=== PATIENT | female | born 1940 | race Caucasian/White ===

== ENCOUNTER 2018-06-21 07:42 | Inpatient (IN) ==
--- NOTE | 2018-06-09 08:05 | EKG Report ---
Test Performed on : 06/09/2018 07:46:30 AM Test Reason : PAT Blood Pressure : / mmHG Vent. Rate : 072 BPM Atrial Rate : 072 BPM P-R Int : 196 ms QRS Dur : 164 ms QT Int : 466 ms P-R-T Axes : 000 -67 024 degrees QTc Int : 510 ms Atrial-paced rhythm with premature atrial complexes. Right bundle branch block Left anterior fascicular block Bifascicular block Minimal voltage criteria for LVH, may be normal variant Septal infarct , age undetermined Abnormal ECG When compared with ECG of 14-JAN-2016 09:27, premature atrial complexes. are now present Septal infarct is now present Confirmed by Og WRIGHT, Rad Muse ([id number]) on 06/09/2018 8:42:57 AM
[2018-06-09 08:52] LABS: URINE SOURCE CLEAN CATCH
[2018-06-09 09:01] LABS: BASO# 0.04 X1000 (0.0-0.2); BASO% 0.6 % (0.0-0.8); EOS% 4.5 % (0.0-10.0); HEMATOCRIT 38.5 % (37.0-47.0); HEMOGLOBIN 12.7 g/dL (12.0-16.0); IMM GRAN# 0.02 X1000 (0.0-0.04); IMM GRAN% 0.3 % (0.0-0.5); LYMPH# 2.51 X1000 (1.2-3.4); LYMPH% 37.8 % (20.5-51.1); MCH 31.5 PG (27-31); MCV 95.5 FL (81-99); MONO# 0.53 X1000 (0.11-0.59); MPV 12.2 FL (7.4-10.4); NEUT# 3.24 X1000 (1.4-6.5); NEUT% 48.8 % (42.2-75.2); PLT 174 X1000 (130-400); RBC 4.03 XMIL (4.2-5.4); RDW 12.3 % (11.5-14.5); WBC 6.64 X1000 (4.8-10.8)
[2018-06-09 09:05] LABS: BILIRUBIN URINE NEGATIVE (NEGATIVE); BLOOD URINE NEGATIVE (NEGATIVE); COLOR YELLOW; GLUCOSE URINE TRACE mg/dL (NEGATIVE); KETONE URINE NEGATIVE (NEGATIVE); LEUKOCYTES URINE TRACE (NEGATIVE); NITRITE URINE NEGATIVE (NEGATIVE); PH URINE 5.5; PROTEIN URINE 30 mg/dL (NEGATIVE); SP GRAVITY URINE 1.018; TURBIDITY URINE CLEAR (CLEAR); UROBILINOGEN URINE NORMAL (NORMAL)
[2018-06-09 09:06] LABS: UR EPITHELIAL CELLS <10 /HPF (<10); URINE BACTERIA NEGATIVE /HPF; URINE RBC <10 /HPF (<10); URINE WBC <10 /HPF (<10)
[2018-06-09 09:12] LABS: INR 0.93; PROTIME 13.2 Seconds (11.0-16.0)
[2018-06-09 09:36] LABS: CALCIUM 10.7 mg/dL (8.8-10.2); CREATININE 1.1 mg/dL (0.5-0.9)
[2018-06-21] MEDS ORDERED: PEPCID ONE (08:09)
[2018-06-21] MEDS ORDERED: COLACE ONE (08:09)
[2018-06-21] MEDS ORDERED: REGLAN ONE (08:09)
[2018-06-21] MEDS ORDERED: CELEBREX ONE (08:10)
[2018-06-21] MEDS ORDERED: KEFZOL 1 GM/D5W 1 GM/50 ML IVPB ONE (08:10)
[2018-06-21] MEDS ORDERED: LR 1,000 ML ONE (08:10)
[2018-06-21] MEDS ORDERED: DIPRIVAN 1% 500 MG/50 ML BOTTLE ONE (09:37)
[2018-06-21] MEDS ORDERED: VANCOMYCIN ONE (09:41)
[2018-06-21] MEDS ORDERED: DURAMORPH ONE (09:41)
[2018-06-21] MEDS ORDERED: SENSORCAINE-MPF 0.5%/EPI 1:200,000 ONE (09:41)
[2018-06-21] MEDS ORDERED: SODIUM CHLORIDE 0.9% ONE (09:41)
[2018-06-21] MEDS ORDERED: TORADOL ONE (09:41)
[2018-06-21] MEDS ORDERED: CYKLOKAPRON 1,000 MG/NS 1,000 MG/100 ML IVPB ONE ×2 (09:41→09:42)
[2018-06-21] MEDS ORDERED: NEOSPORIN G.U. IRRIGANT ONE (09:42)
[2018-06-21] MEDS ORDERED: EXPAREL 1.3% ONE (09:42)
[2018-06-21] MEDS ORDERED: FENTANYL ONE (09:58)
[2018-06-21] MEDS ORDERED: DILAUDID ONE (10:45)
[2018-06-21 10:47] LABS: URINE SOURCE CATH
[2018-06-21 10:52] LABS: BILIRUBIN URINE NEGATIVE (NEGATIVE); BLOOD URINE NEGATIVE (NEGATIVE); COLOR YELLOW; GLUCOSE URINE NEGATIVE (NEGATIVE); KETONE URINE NEGATIVE (NEGATIVE); LEUKOCYTES URINE NEGATIVE (NEGATIVE); NITRITE URINE NEGATIVE (NEGATIVE); PH URINE 5.5; PROTEIN URINE TRACE mg/dL (NEGATIVE); SP GRAVITY URINE 1.009; TURBIDITY URINE CLEAR (CLEAR); UROBILINOGEN URINE NORMAL (NORMAL)
[2018-06-21 10:53] LABS: UR EPITHELIAL CELLS <10 /HPF (<10); URINE BACTERIA NEGATIVE /HPF; URINE RBC <10 /HPF (<10); URINE WBC <10 /HPF (<10)
[2018-06-21] MEDS ORDERED: OFIRMEV 1000 MG/ISOTONIC SOLN 1,000 MG/100 ML BOTTLE ONE (10:54)
[2018-06-21] MEDS ORDERED: ZOFRAN ONE (10:54)
[2018-06-21] MEDS ORDERED: DECADRON ONE (10:54)
[2018-06-21] MEDS ORDERED: NS 1,000 ML ONE (12:49)
[2018-06-21] MEDS ORDERED: MORPHINE IV PRN (13:40)
[2018-06-21] MEDS ORDERED: ZOFRAN IV PRN (13:40)
[2018-06-21] MEDS ORDERED: OXY IR PO PRN (13:40)
[2018-06-21 14:45] LABS: HEMOGLOBIN A1C 6.9 % (4.8-6.0)
--- NOTE | 2018-06-21 15:47 | OPERATIVE NOTE ---
PROCEDURE DATE: 06/21/2018 PREOPERATIVE DIAGNOSIS: Left knee degenerative joint disease. POSTOPERATIVE DIAGNOSIS: Left knee degenerative joint disease. PROCEDURE: Left total knee arthroplasty using a [facility] size 4 femoral component, size 4 tibial base plate, 14 mm articular insert, and 32 mm patellar component. ANESTHESIA: General. SURGEON: Azam Storm MD CHEMICAL LABORATORY SCIENTIST: Elena Winchester PA-C, who was present throughout the case. Her assistance was critical for exposure, placement of the implants, and wound closure. Her assistance greatly reduced the anesthesia and operative time and improved the efficiency in the OR. BLOOD LOSS: Minimal. TOURNIQUET TIME: Approximately an hour and a half. DRAIN: Hemovac x1. DESCRIPTION OF PROCEDURE: Patient was brought to the operative suite and placed in the supine position. After successful administration of general anesthesia, a well-padded tourniquet was placed on the left proximal thigh and the left lower extremity was prepped and draped in the usual sterile fashion. The leg was exsanguinated. Tourniquet insufflated to 350 torr. A longitudinal incision was made beginning at the superior pole of the patella and extended distally to the tibial tuberosity. Full-thickness skin flaps were elevated medially. A medial arthrotomy was made with a vastus snip. The medial capsule was elevated off the medial tibial plateau. The ACL, PCL, medial meniscus, and lateral meniscus were excised. A drill was entered in the center distal femur. Intramedullary guide was placed. Distal cutting block was pinned into place and distal cut was made with the oscillating saw. Marginal osteophytes removed with a rongeur. The femur was sized to size 4. A size 4 cutting block was pinned into place, and the anterior cuts, chamfer cuts, and posterior condylar cuts were made with the oscillating saw. A box cutting block was pinned into place and the box cut was made with a box osteotome and oscillating saw. Posterior condyle osteophytes were removed with a curved osteotome and a rongeur. Attention was then directed to the tibia. A drill was then inserted into the tibia. Intramedullary guide was placed. Alignment checked with drop kai referencing off the anterior cortex tibia and the second ray of the foot and taking 4 mm off the low side of the tibia, which in this case was medially. The tibial cutting block was pinned into place and the articular surface of the tibial plateau was removed with an oscillating saw. Flexion and extension gaps were checked and balanced at 14 mm. The tibia sized to size 4. A size 4 tibial trial was then used for a fin punch and then the tibial trial, femoral trial, and 14 mm articular insert were placed and taken through range of motion revealing excellent alignment, balancing, and range of motion. Attention was directed to the patella and 9 mm of the articular surface of patella were removed with oscillating saw. Patella was sized to size 32. A size 32 guide was used to drill peg holes. The lateral facet was chamfered 30 to 45 degrees. Patella trial was placed, taken through range of motion, and found have excellent patella tracking. She did have a partial avulsion of the patellar tendon medially. This was repaired with 3 juggernaut suture anchors through the tendon and these were tied. All trials were then removed. The knee was copiously irrigated and dried, being certain that all bony debris was removed. The tibial component, femoral component, and patellar component were cemented in place, excess cement being removed with a [place]. Once the cement had hardened, excess cement was again removed with an osteotome and the knee was again copiously irrigated and dried, being certain all bone and cement debris was removed. The trial articular insert was removed. The knee was copiously infiltrated with Exparel, including posterior capsule, anterior capsule, medial and lateral collateral ligaments, the anterior musculture and subcutaneous tissue. The definitive articular insert was placed and the knee was again taken through range of motion and again was found to have excellent alignment, balancing, range of motion, and patellar tracking. A drain was placed exiting superolaterally and buried in the lateral gutter. The tourniquet was deflated. Hemostasis was obtained with electrocautery. The knee was again copiously irrigated with normal saline containing irrigant and lavage irrigation and then the medial arthrotomy was closed with 0 V-Loc. The skin edges were approximated with 2-0 Vicryl and a Prineo dressing was applied. A sterile dressing, cooling blanket, Meng wrap, and a knee immobilizer were applied. The patient tolerated the procedure well without complication. At the end the procedure, all counts were correct x2. The patient was transferred to the recovery room in stable condition. cc: Azam Storm MD
[2018-06-21] MEDS: ULTRAM PO SCH ×2 (16:53→21:47)
[2018-06-21] MEDS: BLISTEX MEDICATED BERRY LIP BALM TOP PRN (17:56)
[2018-06-21] MEDS ORDERED: KEFZOL 2 GM in D5W 50 ML IV SCH (18:00)
[2018-06-21] MEDS ORDERED: KEFZOL 2 GM in NS 50 ML IV SCH (19:12)
[2018-06-21] MEDS ORDERED: LASIX IV ONE (21:45)
[2018-06-21] MEDS: TYLENOL PO SCH (21:47)
[2018-06-21] MEDS: NS 1,000 ML IV SCH (21:47)
[2018-06-21] MEDS: PERIDEX MT SCH (21:48)
[2018-06-21] MEDS: RESTORIL PO SCH (21:48)
[2018-06-21] MEDS: DESYREL PO SCH (21:48)
[2018-06-21] MEDS: COLACE PO SCH (21:48)
--- NOTE | 2018-06-22 00:20 | CONSULTATION ---
DATE OF CONSULTATION: 06/21/2018 This is a consultation for Dr. Storm. A 78-year-old white female who was admitted to the hospital for the medical management for medical problems after the left knee replacement and also repair the tendon. HPI: She is 78-year-old white female doing very well and denies of any complaints. No chest pain. No shortness of breath. She was evaluated physical exam on 06/14/2018. PAST MEDICAL HISTORY: Allergic rhinitis, hypertension, hypothyroidism, insomnia, major depression, metabolic syndrome, left knee arthritis, type 2 diabetes, vitamin B12 deficiency, vitamin D deficiency, hypercalcemia due to hyperparathyroidism stable. PAST SURGICAL HISTORY: Permanent pacemaker, thyroid surgery, appendectomy, cholecystectomy, hysterectomy, orthopedic surgery on the femur kai on the hip bone grafts twice. ALLERGIES: Avelox and Zestril. MEDICATIONS: Amlodipine 10 daily, Claritin 10 daily, Plavix 75 daily, duloxetine 20 mg daily, Synthroid 125 daily, losartan 50 mg daily, Mobic 15 daily, metoprolol 50 daily, trazodone 100 daily, scopolamine patch as needed. SOCIAL HISTORY: 2 kids, living in [place]. No smoking, no alcohol, no drug abuse. FAMILY HISTORY: Father of stroke at 79, mom of stroke at 82. Sister passed from cervical cancer, lung cancer. Brother had prostate cancer and stroke. HEALTH MAINTENANCE: Flu vaccine February 2018, pneumococcal 2016, shingles 2013, mammography 06/2018, DEXA scan 06/2017, colonoscopy [address] Win. REVIEW OF SYSTEMS: HEENT: No headache, no vision problem. No earache, no sore throat. Neck: No goiter. No lymphadenopathy. No bruit. Cardiopulmonary: No chest pain, shortness of breath, PND, orthopnea. Mild swelling of feet. GI: Nausea, vomiting, abdominal pain. Left knee was in knee immobilizers. No focal symptoms or weakness. EXAMINATION: Vitals are stable.HEENT: Facial edema noted. Neck: Supple. Chest: Clear. Heart: Sounds are regular. Belly: Soft, obese, nontender and no obvious neurological deficits noted. LABS: CBC is normal, PT/INR is normal. SMA 7 is normal. Calcium slightly elevated, A1c is 6.9. Urinalysis is clear. ASSESSMENT AND PLAN: 1. A 78-year-old white female postop day 1 left knee replacement, tendon repair, doing very well. Discussed with Dr. Storm as well as the family. Reconcile home medicines. Continue vitamin B12 deficiency on replacement vitamin D replacement. 2. Hypercalcemia due to hyperparathyroidism stable. 3. Paroxysmal atrial fibrillation on Plavix 75 daily, sick sinus syndrome status post pacemaker, history of ocular histoplasmosis stable and depression on Prozac and trazodone. 4. Diverticulosis stable. 5. History of Graves disease status post ablation with hypothyroidism on levothyroxine 125 daily, hypertension metoprolol 50 daily, losartan 50 daily, Norvasc 10 daily and history of right femur fracture with intramedullary kai stable, type 2 diabetes, she is under diet and control, last A1c below 6.9, continue on sliding scale with insulin coverage. 6. Deep venous thrombosis prophylaxis as per Dr. Storm. 7. Will follow up pending labs and patient wants to go home for outpatient rehab. cc: MD Azam Bruno MD
[2018-06-22] MEDS: OXY IR PO PRN ×2 (01:28→23:13)
[2018-06-22] MEDS ORDERED: KEFZOL 2 GM in NS 50 ML IV ONE (02:00)
[2018-06-22] MEDS: NS 1,000 ML IV SCH ×2 (03:25→18:16)
[2018-06-22 06:30] LABS: HEMATOCRIT 32.3 % (37.0-47.0); HEMOGLOBIN 10.8 g/dL (12.0-16.0)
[2018-06-22 06:42] LABS: CALCIUM 9.7 mg/dL (8.8-10.2); POTASSIUM 4.1 mmol/L (3.5-5.1)
[2018-06-22] MEDS: HUMULIN R SUBQ SCH ×4 (07:00→23:51)
[2018-06-22] MEDS: ULTRAM PO SCH ×3 (07:22→19:27)
[2018-06-22] MEDS: TYLENOL PO SCH ×3 (07:22→19:27)
[2018-06-22] MEDS: SYNTHROID PO SCH (07:22)
--- NOTE | 2018-06-22 08:27 | PROGRESS NOTE ---
DATE: 06/22/2018 SUBJECTIVE: Ms. Almanza is a 78-year-old female, who is postoperative day 1 from a left total knee arthroplasty with patellar tendon repair. She complains of some soreness in her knee at this time. Otherwise, she has no new complaints. OBJECTIVE: General: She is a well developed, well-nourished female. She is alert, oriented, and cooperative with examination. She is in no acute. Vital Signs: Stable. She is afebrile. Extremities: Her left knee dressing is clean, dry, and intact. Her left leg is neurovascularly intact. LABORATORY: Her hemoglobin is 10.8 and her hematocrit is 32.3. She has had 100 mL of drainage from her Hemovac drain. ASSESSMENT: Stable postoperative day 1 from a left total knee arthroplasty with patella tendon repair. PLAN: We are going to have her continue wearing the knee immobilizer. We will see how she does with physical therapy today. Depending on how she does today and tonight, we will either send her home or to rehab later this week. Dictated by RAYO Rodriguez for Azam Storm MD cc: RAYO Rodriguez MD
[2018-06-22] MEDS: MOBIC PO SCH (09:13)
[2018-06-22] MEDS: PROZAC PO SCH (09:13)
[2018-06-22] MEDS: PLAVIX PO SCH (09:13)
[2018-06-22] MEDS: NORVASC PO SCH (09:13)
[2018-06-22] MEDS: PERIDEX MT SCH ×2 (09:13→23:51)
[2018-06-22] MEDS: COLACE PO SCH ×2 (09:14→23:13)
[2018-06-22] MEDS: VITAMIN B-12 PO SCH (09:14)
[2018-06-22] MEDS: PYRIDOXINE PO SCH (09:14)
[2018-06-22] MEDS: CLARITIN PO SCH (09:14)
[2018-06-22] MEDS: COZAAR PO SCH (09:14)
[2018-06-22] MEDS: TOPROL XL PO SCH (09:15)
[2018-06-22] MEDS: PEPCID PO SCH (09:15)
[2018-06-22] MEDS: VITAMIN D PO SCH (09:29)
--- NOTE | 2018-06-22 21:53 | PROGRESS NOTE ---
DATE: 06/22/2018 SUBJECTIVE: Patient is doing better. No complaints. Facial edema much improved. IV Lasix was given. EXAMINATION: Vital Signs: Temp is 98, pulse is 70, blood pressure 150/76. HEENT: Facial edema, improved. Chest: Clear. Heart: Heart sounds are regular. Abdomen: Belly is soft, obese, nontender. Had a left knee immobilizer. LABS: Hematocrit 32, SMA-7 is normal. Glucose 193. ASSESSMENT AND PLAN: 1. Postoperative day #2 left knee replacement. Stable. 2. IV Lasix was given for fluid balance. 3. Out of the bed with physical therapy. 4. Diabetes. Continue on sliding scale with insulin coverage. 5. DVT prophylaxis. As per Dr. Storm. 6. Continue home medications. 7. Will slowly decrease the IV fluids. We will do the H H in the morning. LEVEL OF DOCUMENTATION: 25 minutes. cc: MD Azam Bruno MD
[2018-06-22] MEDS: RESTORIL PO SCH (23:12)
[2018-06-22] MEDS: DESYREL PO SCH (23:12)
[2018-06-23 05:50] LABS: HEMATOCRIT 31.1 % (37.0-47.0); HEMOGLOBIN 10.5 g/dL (12.0-16.0)
[2018-06-23] MEDS: ULTRAM PO SCH ×3 (06:29→18:41)
[2018-06-23] MEDS: SYNTHROID PO SCH (06:30)
[2018-06-23] MEDS: TYLENOL PO SCH ×3 (06:30→18:41)
[2018-06-23] MEDS: HUMULIN R SUBQ SCH ×4 (07:35→21:49)
[2018-06-23] MEDS: PLAVIX PO SCH (10:04)
[2018-06-23] MEDS: PERIDEX MT SCH ×2 (10:04→21:49)
[2018-06-23] MEDS: VITAMIN D PO SCH (10:04)
[2018-06-23] MEDS: CLARITIN PO SCH (10:04)
[2018-06-23] MEDS: PYRIDOXINE PO SCH (10:04)
[2018-06-23] MEDS: NORVASC PO SCH (10:05)
[2018-06-23] MEDS: COLACE PO SCH ×2 (10:05→21:50)
[2018-06-23] MEDS: PROZAC PO SCH (10:05)
[2018-06-23] MEDS: MOBIC PO SCH (10:05)
[2018-06-23] MEDS: TOPROL XL PO SCH (10:05)
[2018-06-23] MEDS: PEPCID PO SCH (10:05)
[2018-06-23] MEDS: VITAMIN B-12 PO SCH (10:05)
[2018-06-23] MEDS: COZAAR PO SCH (10:06)
[2018-06-23] MEDS: OXY IR PO PRN ×3 (10:19→21:50)
--- NOTE | 2018-06-23 12:04 | PROGRESS NOTE ---
DATE: 06/23/2018 SUBJECTIVE: Lucila Almanza is a 78-year-old female who is postoperative day 2 from a left total knee arthroplasty. She continues to exhibit some confusion. She is making slow progress. OBJECTIVE: General: She is a well-developed, well-nourished female. She is cooperative with exam. She does have some confusion. Left lower extremity: Her wound is clean, dry, and intact. However, blood sugar has been running over 200. Her hematocrit is 31%. Her hemoglobin is 10.5. She has had minimal ambulation as well. IMPRESSION: Slow progress with Physical Therapy, with new onset diabetes with hyperglycemia and continued confusion. PLAN: We will need to get her blood sugar under better control as well as have her ambulating better prior to going home and certainly before going to rehab as well. She may be ready for rehab on Thursday. cc: Azam Storm MD
--- NOTE | 2018-06-23 18:43 | PROGRESS NOTE ---
DATE: 06/23/2018 SUBJECTIVE: Postop day 2 left knee surgery. He had a blister noted just below the knee. REVIEW OF SYSTEMS: None reported. OBJECTIVE: Vital signs: Temperature 97 degrees, pulse is 70, blood pressure 137/47. HEENT: Within normal limits. Neck: Supple. No lymphadenopathy. Chest: Clear. Heart: Sounds are regular. Abdomen: Belly is soft, nontender and no neurological deficits. INVESTIGATIONS: Hematocrit 31. ASSESSMENT AND PLAN: 1. Postoperative day 2, left knee. 2. Blister. Continue local wound care. 3. Diabetes stable. 4. Hypercalcemia stable. 5. Continue on Plavix and out of the bed with physical therapy. 6. 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 LEVEL OF DOCUMENTATION: 25 minutes. cc: MD Azam Bruno MD
[2018-06-23] MEDS: DESYREL PO SCH (21:50)
[2018-06-23] MEDS: RESTORIL PO SCH (21:50)
[2018-06-24] MEDS: ULTRAM PO SCH ×2 (03:36→06:34)
[2018-06-24] MEDS: TYLENOL PO SCH ×2 (03:36→06:35)
[2018-06-24] MEDS: SYNTHROID PO SCH (06:34)
[2018-06-24] MEDS: HUMULIN R SUBQ SCH ×4 (06:35→22:02)
[2018-06-24 06:50] LABS: HEMATOCRIT 30.7 % (37.0-47.0); HEMOGLOBIN 10.3 g/dL (12.0-16.0)
--- NOTE | 2018-06-24 09:04 | PROGRESS NOTE ---
DATE: 06/24/2018 SUBJECTIVE: Lucila ashby is a 78-year-old female with a left total knee with patellar tendon repair and some progress with physical therapy. She has had beginnings of intention tremor today. OBJECTIVE: General: She is a well-developed, well-nourished female. Extremities: Her wound is healing nicely. She does have a little blister at the inferior aspect of the wound, but otherwise no sign of infection. ASSESSMENT: Left total knee arthroplasty with new onset tremor. PLAN: Dr. Mckeon is going to check her calcium level. I have discontinued her Ultram. She will likely go to rehab tomorrow if everything clears up. cc: Azam Storm MD
[2018-06-24] MEDS: PERIDEX MT SCH ×2 (10:10→21:31)
[2018-06-24] MEDS: PEPCID PO SCH (10:10)
[2018-06-24] MEDS: VITAMIN D PO SCH (10:10)
[2018-06-24] MEDS: PLAVIX PO SCH (10:10)
[2018-06-24] MEDS: CLARITIN PO SCH (10:10)
[2018-06-24] MEDS: TOPROL XL PO SCH (10:11)
[2018-06-24] MEDS: MOBIC PO SCH (10:11)
[2018-06-24] MEDS: PYRIDOXINE PO SCH (10:11)
[2018-06-24] MEDS: PROZAC PO SCH (10:11)
[2018-06-24] MEDS: COZAAR PO SCH (10:11)
[2018-06-24] MEDS: COLACE PO SCH ×2 (10:11→21:31)
[2018-06-24] MEDS: VITAMIN B-12 PO SCH (10:11)
[2018-06-24] MEDS: NORVASC PO SCH (10:11)
[2018-06-24] MEDS ORDERED: DULCOLAX PR PRN (12:29)
[2018-06-24] MEDS: OXY IR PO PRN (12:31)
[2018-06-24] MEDS: BLISTEX MEDICATED BERRY LIP BALM TOP PRN (15:27)
[2018-06-24] MEDS: MIRALAX PO SCH (15:27)
[2018-06-24] MEDS: MILK OF MAGNESIA PO PRN (15:27)
[2018-06-24] MEDS ORDERED: CATAPRES PO PRN (15:49)
[2018-06-24] MEDS ORDERED: APRESOLINE IV PRN (17:23)
--- NOTE | 2018-06-24 18:52 | Diag Imaging Result Doc PS360 ---
EXAM: CHEST-1 VIEW 06/24/2018 HISTORY: REHAB TECHNIQUE: AP portable upright at 1832 COMMENT: There is a granuloma in the left base. The inspiration is less optimal than on the previous study of 05/18/2015. There may be some atelectasis or pneumonia in the left lower lobe. Otherwise the appearance of the chest has not changed significantly. IMPRESSION: Minimal left lower lobe atelectasis. Electronically signed by Amador Orellana 06/24/2018 6:50 PM
[2018-06-24] MEDS: RESTORIL PO SCH (21:31)
[2018-06-24] MEDS: DESYREL PO SCH (21:31)
--- NOTE | 2018-06-24 23:03 | PROGRESS NOTE ---
DATE: 06/24/2018 SUBJECTIVE: Apparently the patient has some twitching, and blood pressure is running high. Waiting for rehab placement. No weakness. No speech impediments. PHYSICAL EXAMINATION: Vital signs: Temperature is 98.5 degrees, pulse is 70, blood pressure 140/52. HEENT: Within normal limits. Neck: Supple. No lymphadenopathy. Chest: Bilateral air entry. Heart: Sounds are regular. Abdomen: Belly is soft, nontender. No obvious deficits noted. Status post bypass surgery. LABORATORIES: Hematocrit 30.7. ASSESSMENT AND PLAN: 1. Postoperative day 2 left knee arthroplasty, stable. We will check the labs in the morning, CBC, BMP. 2. Insomnia. Restoril 30 mg at bedtime. 3. Hypertension. Norvasc 10 mg daily. We will use hydralazine as needed if systolic blood pressure is more than 160. Add Cozaar 50 daily. 4. Continue Plavix for deep vein thrombosis prophylaxis. 5. Gastrointestinal prophylaxis with Pepcid. 6. Hypothyroidism, on Synthroid. 7. Family has been reassured. 8. Continue physical therapy. 9. Continue incentive spirometry. 10. We will check the labs in the morning. If stable, will go for rehab. LEVEL OF DOCUMENTATION: 25 minutes. cc: MD Azam Bruno MD
[2018-06-25 06:07] LABS: BASO# 0.04 X1000 (0.0-0.2); BASO% 0.4 % (0.0-0.8); EOS# 0.19 X1000 (0.0-0.7); EOS% 1.9 % (0.0-10.0); HEMATOCRIT 34.9 % (37.0-47.0); HEMOGLOBIN 11.5 g/dL (12.0-16.0); IMM GRAN# 0.08 X1000 (0.0-0.04); IMM GRAN% 0.8 % (0.0-0.5); LYMPH# 3.08 X1000 (1.2-3.4); LYMPH% 31.3 % (20.5-51.1); MCH 31.7 PG (27-31); MCV 96.1 FL (81-99); MONO% 10.2 % (1.7-9.3); MPV 12.4 FL (7.4-10.4); NEUT# 5.45 X1000 (1.4-6.5); NEUT% 55.4 % (42.2-75.2); PLT 149 X1000 (130-400); RBC 3.63 XMIL (4.2-5.4); RDW 12.7 % (11.5-14.5); WBC 9.84 X1000 (4.8-10.8)
[2018-06-25 06:29] LABS: AGAP 10; BUN 15 mg/dL (8-22); CALCIUM 10.8 mg/dL (8.8-10.2); CHLORIDE 100 mmol/L (98-107); COSMO 276; CREATININE 0.9 mg/dL (0.5-0.9); ESTIMATED GFR > 60; GLUCOSE 194 mg/dL (70-104); POTASSIUM 4.5 mmol/L (3.5-5.1); SODIUM 135 mmol/L (136-145); TCO2 25 mmol/L (25-35)
[2018-06-25] MEDS: SYNTHROID PO SCH (06:39)
[2018-06-25] MEDS: HUMULIN R SUBQ SCH ×4 (06:40→22:02)
--- NOTE | 2018-06-25 08:12 | PROGRESS NOTE ---
DATE: 06/25/2018 SUBJECTIVE: Lucila Almanza is a 78-year-old female with a left total knee arthroplasty. She continues to complain of confusion, and seems to be somewhat lethargic. OBJECTIVE: She is a well-developed, well-nourished female. Her wound is clean, dry, and intact. Her leg is neurovascularly intact. ASSESSMENT: Left total knee arthroplasty with continued lethargy. PLAN: We will keep her in the hospital for now as she has not progressed well enough with therapy to go to rehab. I am concerned about her lethargy as well. I am going to order some labs. We will evaluate her further. cc: Azam Storm MD
[2018-06-25] MEDS: PERIDEX MT SCH ×2 (09:32→22:02)
[2018-06-25] MEDS: MIRALAX PO SCH (09:32)
[2018-06-25] MEDS: MILK OF MAGNESIA PO PRN (09:33)
[2018-06-25] MEDS: VITAMIN B-12 PO SCH (09:33)
[2018-06-25] MEDS: COLACE PO SCH ×2 (09:33→22:02)
[2018-06-25] MEDS: PLAVIX PO SCH (09:33)
[2018-06-25] MEDS: COZAAR PO SCH (09:34)
[2018-06-25] MEDS: VITAMIN D PO SCH (09:34)
[2018-06-25] MEDS: PYRIDOXINE PO SCH (09:34)
[2018-06-25] MEDS: PROZAC PO SCH (09:34)
[2018-06-25] MEDS: NORVASC PO SCH (09:35)
[2018-06-25] MEDS: PEPCID PO SCH (09:35)
[2018-06-25] MEDS: TOPROL XL PO SCH (09:35)
[2018-06-25] MEDS: CLARITIN PO SCH (09:35)
[2018-06-25] MEDS: MOBIC PO SCH (09:35)
[2018-06-25] MEDS ORDERED: PREPARATION H OINT TOP PRN (13:34)
[2018-06-25] MEDS: TYLENOL PO PRN (14:41)
--- NOTE | 2018-06-25 19:48 | PROGRESS NOTE ---
DATE: 06/25/2018 SUBJECTIVE: The patient is a little bit lethargic, confused and also constipated. Blood pressure is doing well. twitchings are improving. The patient's blister is better on the left leg. Not able to do physical therapy. REVIEW OF SYSTEMS: Constipation. OBJECTIVE: Temperature is 98 degrees, pulse is 70, blood pressure is 144/53. HEENT exam within normal limits. Neck is supple. No lymphadenopathy. Chest: Bilateral air entry. Heart sounds are regular. Belly is soft, nontender. LABORATORY DATA: CBC: White cell count 9.8, hematocrit 34.9, platelets 149, 000. SMA 7: Sodium 135, potassium 4.5, chloride 100, BUN 15, creatinine 0.9, glucose 181, calcium 10.8. ASSESSMENT AND PLAN: 1. Altered mental status, metabolic encephalopathy, improving. 2. Hypercalcemia, stable. 3. Constipation. We will give some Dulcolax, magnesium oxide and also MiraLAX. 4. Hypertension, stable. We will keep her over the weekend for physical therapy and disposition of rehabilitation on Thursday. I agree with Dr. Storm. Follow up. Level of documentation was 25 minutes. cc: MD Azam Bruno MD [facility]
[2018-06-25] MEDS: RESTORIL PO SCH (22:02)
[2018-06-25] MEDS: DESYREL PO SCH (22:02)
[2018-06-26] MEDS: SYNTHROID PO SCH (06:46)
[2018-06-26] MEDS: HUMULIN R SUBQ SCH ×4 (06:46→21:53)
[2018-06-26] MEDS: MIRALAX PO SCH ×4 (07:55→10:10)
[2018-06-26] MEDS: PEPCID PO SCH (09:50)
[2018-06-26] MEDS: PYRIDOXINE PO SCH (09:50)
[2018-06-26] MEDS: NORVASC PO SCH (09:50)
[2018-06-26] MEDS: TOPROL XL PO SCH (09:51)
[2018-06-26] MEDS: PERIDEX MT SCH ×2 (09:51→20:21)
[2018-06-26] MEDS: COZAAR PO SCH (09:51)
[2018-06-26] MEDS: VITAMIN D PO SCH (09:51)
[2018-06-26] MEDS: MOBIC PO SCH (09:52)
[2018-06-26] MEDS: VITAMIN B-12 PO SCH (09:52)
[2018-06-26] MEDS: CLARITIN PO SCH (09:52)
[2018-06-26] MEDS: PLAVIX PO SCH (09:53)
[2018-06-26] MEDS: COLACE PO SCH ×2 (09:53→20:21)
[2018-06-26] MEDS: PROZAC PO SCH (09:53)
--- NOTE | 2018-06-26 10:00 | PROGRESS NOTE ---
DATE: 06/26/2018 SUBJECTIVE: Lucila Almanza is a 78-year-old female who is postoperative day 5 from a left total knee. She continues to be with some confusion and slow progress with Physical therapy. OBJECTIVE: She is a well-developed, well-nourished female, she is resting comfortably. Her wound is clean, dry, intact. Her leg is neurovascularly intact. ASSESSMENT: Slow progress with Physical Therapy and patellar tendon repair after total knee arthroplasty. PLAN: We will continue working on physical therapy. She will likely go to rehab the first part of the week. cc: Azam Storm MD
--- NOTE | 2018-06-26 12:59 | PROGRESS NOTE ---
DATE: 06/26/2018 SUBJECTIVE: The patient says she just does not feel well but she cannot really explain it. She says she feels tired. She seems very lucid today and aware of what is going on around her. She is oriented x3. She has had some altered mental status earlier. The family believes some of that could have been from her pain medication. Apparently, she also got some tremors taken tramadol. She got constipated taking some other narcotics, OxyContin apparently. She has now been cleaned out, had a bowel movement. She is recovering from left knee replacement. OBJECTIVE: Vital Signs: Blood pressure is 149/56, respirations 20, pulse 70, temperature 98.4 degrees. HEENT: She is normocephalic. EOMS intact. PERRLA. Throat clear. Lungs: Clear to auscultation and percussion without rhonchi, rales, or wheezes. Heart: Regular rate and rhythm without murmurs, gallops, or friction rubs. Abdomen: Soft. Active bowel sounds. No organomegaly or tenderness. Neurological: Intact grossly. She has a brace around her left knee. PLAN: Continue to support and hopefully get to rehab. It should be noted that apparently diabetes was discovered on this admission and she has had some treatment for that as well. cc: MD Azam Raymundo Jr, MD
[2018-06-26] MEDS: RESTORIL PO SCH (20:21)
[2018-06-26] MEDS: DESYREL PO SCH (20:21)
[2018-06-26] MEDS: TYLENOL PO PRN (23:18)
[2018-06-27] MEDS: SYNTHROID PO SCH (06:07)
[2018-06-27] MEDS: HUMULIN R SUBQ SCH ×4 (08:37→21:58)
[2018-06-27] MEDS: MIRALAX PO SCH ×2 (11:13→11:18)
[2018-06-27] MEDS: PEPCID PO SCH (11:14)
[2018-06-27] MEDS: MOBIC PO SCH (11:14)
[2018-06-27] MEDS: PERIDEX MT SCH ×2 (11:14→20:06)
[2018-06-27] MEDS: COZAAR PO SCH (11:14)
[2018-06-27] MEDS: TOPROL XL PO SCH (11:15)
[2018-06-27] MEDS: COLACE PO SCH ×2 (11:15→20:06)
[2018-06-27] MEDS: VITAMIN B-12 PO SCH (11:16)
[2018-06-27] MEDS: VITAMIN D PO SCH (11:17)
[2018-06-27] MEDS: NORVASC PO SCH (11:17)
[2018-06-27] MEDS: PROZAC PO SCH (11:17)
[2018-06-27] MEDS: CLARITIN PO SCH (11:18)
[2018-06-27] MEDS: PLAVIX PO SCH (11:18)
[2018-06-27] MEDS: PYRIDOXINE PO SCH (11:19)
--- NOTE | 2018-06-27 11:40 | PROGRESS NOTE ---
DATE: 06/27/2018 SUBJECTIVE: The patient complains that she did sleep well last night but she took a Restoril and a trazodone. She also complains of both knees hurting some. She has had a left knee replacement. Apparently, because she has had previous surgery on her right femur, it is considered high risk to try to do her right knee surgery but she has complained that it is hurting some too. I think this is just her arthritis. OBJECTIVE: Vital Signs: Blood pressure is 154/57, respirations 20, pulse 70, temperature 98.6 degrees Fahrenheit. HEENT: She is normocephalic. EOMs intact. PERRLA. Throat clear. Lungs: Clear to auscultation and percussion without rhonchi, rales, or wheezes. Heart: Regular rate and rhythm without murmurs, gallops, or friction rubs. Abdomen: Soft. Active bowel sounds. No organomegaly or tenderness. Neurological Examination: Intact grossly. She is oriented x3. Laboratory Data: Calcium is 10.8. ASSESSMENT: She has apparently a history of what sounds like a parathyroid adenoma that is small and it that may be affecting her calcium. PLAN: Continue support. cc: MD Azam Raymundo Jr, MD
--- NOTE | 2018-06-27 16:34 | PROGRESS NOTE ---
DATE: 06/27/2018 SUBJECTIVE: Lucila Almanza is a 78-year-old female postoperative day 7 from a left total knee arthroplasty with patellar tendon repair. She has no complaints. OBJECTIVE: She seems much more alert today. Her vital signs are stable. She is afebrile. Her wound is clean, dry, intact without sign of infection. She has only walked 20 feet however with physical therapy. ASSESSMENT: Stable left total knee arthroplasty. PLAN: She will likely go to rehab tomorrow. I will write specific rehab orders for her. cc: Azam Storm MD MTDD
[2018-06-27] MEDS: TYLENOL PO PRN (18:49)
[2018-06-27] MEDS: DESYREL PO SCH (20:06)
[2018-06-27] MEDS: RESTORIL PO SCH (20:06)
[2018-06-28] MEDS: SYNTHROID PO SCH (05:45)
[2018-06-28] MEDS: HUMULIN R SUBQ SCH ×2 (06:12→12:50)
--- NOTE | 2018-06-28 07:42 | DISCHARGE SUMMARY ---
ADMISSION DATE: 06/22/2018 DISCHARGE DATE: 06/28/2018 DISCHARGE DIAGNOSIS: Left knee degenerative joint disease, status post left total knee arthroplasty with left knee patella tendon repair. DISCHARGE MEDICATIONS: See discharge medication list. DISPOSITION: The patient discharged to rehab. DISCHARGE INSTRUCTIONS: Instructions for total knee arthroplasty protocol and instructed to return to see Dr. Storm this . She is to be weightbearing as tolerated while wearing her left knee immobilizer. She is able to do active flexion but passive extension with physical therapy. HOSPITAL COURSE: On the day of admission, patient underwent a left total knee arthroplasty with patella tendon repair. During her postoperative stay, it was revealed that she had undiagnosed diabetes mellitus. She also had slow progression with physical therapy. She also had new onset of tremors and she also had confusion postoperatively. At this time she is afebrile. Tolerating regular diet, and her ambulation with physical therapy has improved. Her confusion has improved and her tremors have resolved. Her left knee incision is clean, dry, and intact. Her left leg is neurovascularly intact. She is discharged to rehab in stable condition with instructions to follow up as described above. Dictated by RAYO Rodriguez for Azam Storm MD cc: RAYO Rodriguez MD
[2018-06-28] MEDS: PROZAC PO SCH (09:42)
[2018-06-28] MEDS: VITAMIN D PO SCH (09:42)
[2018-06-28] MEDS: PERIDEX MT SCH (09:42)
[2018-06-28] MEDS: NORVASC PO SCH (09:43)
[2018-06-28] MEDS: PEPCID PO SCH (09:43)
[2018-06-28] MEDS: TOPROL XL PO SCH (09:43)
[2018-06-28] MEDS: MOBIC PO SCH (09:43)
[2018-06-28] MEDS: CLARITIN PO SCH (09:43)
[2018-06-28] MEDS: COLACE PO SCH (09:43)
[2018-06-28] MEDS: VITAMIN B-12 PO SCH (09:43)
[2018-06-28] MEDS: COZAAR PO SCH (09:43)
[2018-06-28] MEDS: PYRIDOXINE PO SCH (09:43)
[2018-06-28] MEDS: PLAVIX PO SCH (09:43)
[2018-06-28] MEDS: MIRALAX PO SCH ×2 (09:44)
[2018-06-28 11:29] VITALS: BP 154/66
--- NOTE | 2018-06-29 10:03 | PROGRESS NOTE ---
DATE: 06/28/2018 SUBJECTIVE: A 78-year-old white female who had left knee surgery/arthroplasty. Events noted over the weekend. The patient is more bright. No confusion. REVIEW OF SYSTEMS: None reported. PHYSICAL EXAMINATION: Vital Signs: Temperature is 98 degrees, pulse is 70, blood pressure is 160/56. HEENT: Within normal limits. Chest: Clear. Heart: Sounds are regular. Abdomen: Belly is soft, nontender. ASSESSMENT AND PLAN: 1. Status post left knee arthroplasty, stable. Postoperative course basically twitching. Calcium level slightly high. 2. Constipation, resolving. 3. Blood pressure is stable. 4. Anticoagulation, just on Plavix. 5. Patient is ambulating very well. The patient is going to rehab today at [facility] and follow up as an outpatient and continue present medical regimen. cc: MD Azam Bruno MD
== END 2018-06-28 14:02 | DRG 469 ==
LOC: OR 07:42 → 4N 07:42
PROVIDERS: ADMIT Orthopaedic Surgery; ATTEND Orthopaedic Surgery
CPT/HCPCS: 71010; 71045; 80048; 81001; 82948; 83036; 85014; 85018; 85025; 85610; 85730; 86850; 86900; 86901; 88305; 88311; 93005; 93010; 94761; 94762; 94799; 97116; 97162; 97530; A9270; C9290; J0131; J0360; J0690; J1100; J1170; J1885; J1940; J2274; J2275; J2405; J3010; J3370; J7030; J7060; J7120; Q9974; XXXXX

== ENCOUNTER 2018-08-04 10:18 | Inpatient (IN) ==
[2018-08-04 13:08] LABS: INR 1.09
[2018-08-04 13:09] LABS: PTT 24.8 Seconds (22.3-41.8)
[2018-08-04 13:15] LABS: ALB/GLOB RATIO 1.7; ALBUMIN 3.8 g/dL (3.5-5.0); BASO# 0.05 X1000 (0.0-0.2); BASO% 0.6 % (0.0-0.8); CALCIUM 10.1 mg/dL (8.8-10.2); CREATININE 1.1 mg/dL (0.5-0.9); EOS# 0.15 X1000 (0.0-0.7); EOS% 1.7 % (0.0-10.0); HEMATOCRIT 23.7 % (37.0-47.0); HEMOGLOBIN 7.7 g/dL (12.0-16.0); IMM GRAN# 0.06 X1000 (0.0-0.04); IMM GRAN% 0.7 % (0.0-0.5); LYMPH# 2.84 X1000 (1.2-3.4); LYMPH% 31.5 % (20.5-51.1); MCH 32.1 PG (27-31); MCHC 32.5 g/dL (33-37); MCV 98.8 FL (81-99); MONO# 0.56 X1000 (0.11-0.59); MONO% 6.2 % (1.7-9.3); MPV 11.8 FL (7.4-10.4); NEUT# 5.37 X1000 (1.4-6.5); NEUT% 59.3 % (42.2-75.2); PLT 231 X1000 (130-400); POTASSIUM 4.6 mmol/L (3.5-5.1); RDW 14.1 % (11.5-14.5); TOTAL BILIRUBIN 0.53 mg/dL (0.20-1.00); TOTAL PROTEIN 6.1 g/dL (6.3-8.3); WBC 9.03 X1000 (4.8-10.8)
[2018-08-04] MEDS ORDERED: PROTONIX IV SCH (14:30)
[2018-08-04] MEDS ORDERED: LASIX IV SCH (14:30)
[2018-08-04 15:29] LABS: URINE SOURCE CLEAN CATCH
[2018-08-04 15:38] LABS: BILIRUBIN URINE NEGATIVE (NEGATIVE); BLOOD URINE NEGATIVE (NEGATIVE); COLOR YELLOW; GLUCOSE URINE 300 mg/dL (NEGATIVE); KETONE URINE NEGATIVE (NEGATIVE); LEUKOCYTES URINE NEGATIVE (NEGATIVE); NITRITE URINE NEGATIVE (NEGATIVE); PH URINE 5.5; PROTEIN URINE NEGATIVE (NEGATIVE); SP GRAVITY URINE 1.012; TURBIDITY URINE CLEAR (CLEAR); UROBILINOGEN URINE NORMAL (NORMAL)
[2018-08-04 15:41] LABS: UR EPITHELIAL CELLS <10 /HPF (<10); URINE BACTERIA NEGATIVE /HPF; URINE RBC <10 /HPF (<10); URINE WBC <10 /HPF (<10)
[2018-08-04] MEDS ORDERED: NS 500 ML IV SCH (16:15)
[2018-08-04] MEDS: SODIUM CHLORIDE 0.9% INJ SCH (16:18)
--- NOTE | 2018-08-04 19:08 | GASTROENTEROLOGY CONSULTATION ---
DATE: 08/04/2018 REASON FOR CONSULTATION: melena, GI bleed HPI: Ms. Lucila Almanza is a 78 year old woman with HTN, history of ocular histoplasmosis, SSS s/p pacemaker, hypothyroidism, OA, colonic polyps, diverticulosis who presents with intermittent melena over the last 7 days with associated epigastric discomfort, nausea, lightheadedness, and generalized weakness. No CP, SOB, syncope, BRBPR. Her last EGD and colonoscopy was 3 years ago. Of note, patient has been taking aspirin, plavix, and mobic. She reports starting aspirin recently after her left knee replacement. She had EGD and colonoscopy in 2017. ROS: as per HPI, otherwise 12 point ROS negative PAST MEDICAL HISTORY HTN, history of pulmonary histoplasmosis, diverticulosis, SSS s/p pacemaker, hypothyroidism, OA, colonic polyps, GERD, Allergic rhinitis, insomnia, major depression, OA, metabolic syndrome, left knee arthritis, type 2 diabetes, vitamin B12 deficiency,vitamin D deficiency, urinary incontinence PAST SURGICAL HISTORY: Permanent pacemaker x3, thyroid surgery, appendectomy, cholecystectomy, hysterectomy, orthopedic surgery on the femur kai on the hip bone grafts twice, left knee replacement, bladder surgery ALLERGIES: Avelox and Zestril. MEDICATIONS: Amlodipine, Claritin, Plavix, duloxetine, Synthroid, losartan, Mobic, metoprolol, trazodone SOCIAL HISTORY: 2 kids, living in [place]. No smoking, no alcohol, no drug abuse. FAMILY HISTORY: No GI malignancies PE: VS: T98.2 HR 70 RR 14 BP 143/50 100% RA GEN: awake, alert, NAD HEENT: anicteric, MMM NECK: supple, no jvd PULM: CTAB, no wheezing CV; RRR, no murmurs ABD; soft NT/ND, NABS, no rebound or guarding EXT: no cce NEURO: nonfocal LABS: WBC 9.0 hgb 7.7 plts 231 BMP WNL LFTs WNL INR 1.09 A/P: Ms. Lucila Almanza is a 78 year old woman with HTN, SSS s/p pacemaker on plavix, OA, colonic polyps, diverticulosis, and recent knee replacement who presents with UGIB with melena. Patient was recently started on aspirin. At baseline, she has been taking plavix as well as Mobic. Hgb 7.7. VSS. Patient needs diagnostic EGD to evaluate for PUD, esophagitis, duodenitis, gastritis,. #Melena: consistent with UGIB - continue PPI BID - IVFs, clears - NPO after MN for diagnostic EGD tomorrow with Dr. Benitez #Diverticulosis: stable; low suspicion for LGIB #Anemia: will check iron studies, b12, and folate #H/o SSS s/p pacemaker: holding plavix and aspirin #Chronic joint pain: avoid Mobic. tylenol as needed Thank you for this consult. Will follow with you cc: Larry Nichols MD MTDD
[2018-08-04] MEDS: DESYREL PO SCH (21:07)
[2018-08-04] MEDS: RESTORIL PO SCH (21:07)
[2018-08-04 23:40] LABS: IRON SATURATION 21 %; TIBC 256 ug/dL; TOTAL IRON 55 ug/dL (49-151); UNBOUND IRON 201 ug/dL (112-346)
[2018-08-05 06:39] LABS: INR 1.06; PROTIME 14.7 Seconds (11.0-16.0)
[2018-08-05 06:43] LABS: BASO# 0.06 X1000 (0.0-0.2); BASO% 0.8 % (0.0-0.8); EOS# 0.19 X1000 (0.0-0.7); EOS% 2.5 % (0.0-10.0); HEMATOCRIT 29.8 % (37.0-47.0); HEMOGLOBIN 9.9 g/dL (12.0-16.0); IMM GRAN# 0.05 X1000 (0.0-0.04); IMM GRAN% 0.7 % (0.0-0.5); LYMPH# 2.64 X1000 (1.2-3.4); LYMPH% 35.3 % (20.5-51.1); MCH 31.8 PG (27-31); MCHC 33.2 g/dL (33-37); MCV 95.8 FL (81-99); MONO# 0.59 X1000 (0.11-0.59); MONO% 7.9 % (1.7-9.3); MPV 11.7 FL (7.4-10.4); NEUT# 3.94 X1000 (1.4-6.5); NEUT% 52.8 % (42.2-75.2); PLT 215 X1000 (130-400); RBC 3.11 XMIL (4.2-5.4); RDW 15.2 % (11.5-14.5); WBC 7.47 X1000 (4.8-10.8)
[2018-08-05 07:02] LABS: AGAP 11; BUN 20 mg/dL (8-22); CALCIUM 10.3 mg/dL (8.8-10.2); CHLORIDE 110 mmol/L (98-107); COSMO 290; CREATININE 0.9 mg/dL (0.5-0.9); ESTIMATED GFR > 60; GLUCOSE 169 mg/dL (70-104); POTASSIUM 4.5 mmol/L (3.5-5.1); SODIUM 142 mmol/L (136-145); TCO2 21 mmol/L (25-35)
--- NOTE | 2018-08-05 07:09 | HISTORY AND PHYSICAL ---
CHIEF COMPLAINT: 1. Melanotic stool since yesterday. 2. Hemoglobin 7, hematocrit 23. Baseline hematocrit was 33. HISTORY OF PRESENT ILLNESS: She is a 78-year-old white female, recently had a left knee arthroplasty complicated by distal thrombosis. The patient has been on aspirin, Plavix and Mobic and doing well and having some upper abdominal discomfort, passing black melanotic stool. And heme-positive stool and hemoglobin 7, hematocrit 23. Admitted directly from my office for upper GI bleeding. Dr. Lamb was consulted. Patient is receiving a unit of packed RBCs. As a result, hospital admission was warranted. All NSAIDs were stopped. PAST MEDICAL HISTORY: Allergic rhinitis, hypertension, hypothyroidism, chronic insomnia, depression, metabolic syndrome, osteoarthritis, type 2 diabetes, B12 deficiency, vitamin D deficiency, hypercalcemia due to hyperparathyroidism. PAST SURGICAL HISTORY: Permanent pacemaker, thyroidectomy, appendectomy, cholecystectomy, hysterectomy and orthopedic surgery on the femur kai on the right hip bone with grafts twice and left knee arthroplasty. ALLERGIES: Avelox, Zestril, tramadol, Lyrica. SOCIAL HISTORY: , 2 kids, living in [place]. No smoking. No alcohol. No drug abuse. FAMILY HISTORY: Father of stroke at 79. Mom of stroke at 82. Sister passed from cervical cancer, lung cancer. Brother had prostate cancer and stroke. HEALTH MAINTENANCE: Up to date on vaccinations, mammography, DEXA scan. Last colonoscopy [address] Win. MEDICATIONS: Prozac 20 mg daily, trazodone 100 daily, metoprolol 50 daily, losartan 50 daily, Synthroid 125 daily, Plavix 75 mg daily, Claritin 10 daily, temazepam 30 mg daily, amlodipine 10 daily, thyroxine and B6 100 daily, B12 1000 mcg daily, Mobic 15 mg daily, Tylenol as needed, aspirin 81 mg daily. REVIEW OF SYSTEMS: HEENT: No headache. No dizziness. No earache. No sore throat. Neck: No goiter. No lymphadenopathy. Cardiopulmonary: No chest pain, shortness of breath, PND, orthopnea or palpitations. Gastrointestinal: Upper abdominal pain. Bleeding from black stools. Extremities: Left knee pain and swelling is better. Neurologic: No neurological symptoms or weakness. PHYSICAL EXAMINATION: VITAL SIGNS: Temp is 98.2, pulse is 70, blood pressure 143/50, 5 feet 3 inches, 169 pounds. HEENT: Atraumatic, normocephalic. Pupils equal, react to light. NECK: Supple. No lymphadenopathy. CHEST: Clear. HEART: Sounds are regular. ABDOMEN: Belly is soft, slightly tender. No signs of peritonitis. RECTAL: Heme positive stools. EXTREMITIES: Status post scar in the left knee, healing well. NEUROLOGIC: No neurological deficits. INVESTIGATIONS: CBC: White cell count 9, hematocrit 23.7, platelets 231,000. ASSESSMENT AND PLAN: A 78-year-old white female admitted to the hospital with melanotic stool, heme-positive. The patient has a drop of hematocrit. Plan is IV Protonix. Hold all aspirin, Plavix and Mobic. IV Protonix. EGD by Dr. Lamb. Reconcile home medications. Discussed the plan of care with family members. Appreciate the GI consult and will follow up. cc: Larry Nichols MD
[2018-08-05] MEDS ORDERED: DIPRIVAN 1% ONE (10:01)
--- NOTE | 2018-08-05 11:01 | OPERATIVE NOTE ---
PROCEDURE DATE: 08/05/2018 REQUESTING PHYSICIAN: Dr. Nichols. PROCEDURE PERFORMED: Esophagogastroduodenoscopy. PREOPERATIVE DIAGNOSES: 1. Melena. 2. Anemia. Required 1 unit of blood transfusion. 3. History of chronic arthritis, on Mobic. 4. History of blood clots in the leg. She is on aspirin. 5. The patient has history of coronary disease, and she has been on Plavix. POSTOPERATIVE DIAGNOSES: 1. Esophagitis in distal esophagus. 2. Z-line was at 44 cm, evidence of bile in the stomach and biliary gastritis. 3. Normal fundus, cardia, incisura on retroflexion. 4. Duodenitis, moderate degree, noted in the duodenal bulb. 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 We did not cauterize as the patient was on Plavix until yesterday. There was evidence of a circumferential ulcer at the distal bulb with no active bleeding and no visible vessel. 5. Normal second portion of the duodenum. ESTIMATED BLOOD LOSS: None. COMPLICATIONS: None. ANESTHESIA: Monitored anesthesia care. DESCRIPTION OF PROCEDURE: After obtaining informed consent and the patient and family were explained the risks, benefits, indications, and alternatives to EGD, the risks of the procedure, including infection, bleeding, pain, trauma to the surrounding structures, perforation, and were explained to the patient, among others, and she acknowledged this and agreed to proceed. The patient was brought to the OR. She was turned in the left lateral position. A bite block was placed in the patient's mouth. After adequate monitored anesthesia care, the scope was introduced all the way to the second portion of the duodenum. The esophagus was normal. In the proximal and middle third, the distal esophagus showed evidence of erythema in the distal esophagus suggesting esophagitis LA grade 1. Z-line was noted at 44 cm from the stomach with evidence of bile in the stomach, which was suctioned out. The underlying gastric mucosa showed evidence of erythema and friability erosions suggesting gastritis. Retroflexion showed normal fundus, cardia, incisura. The duodenal bulb showed evidence of duodenitis. No erythema or erosions. There was evidence of a few scattered AVMs in the duodenal bulb. We did not cauterize them as the patient was on Plavix until yesterday. There was evidence of a superficial circumferential ulcer in the distal bulb, which was visualized. There was no evidence of any visible vessel or overlying clot in that area. There was no evidence of active bleeding. The second portion of the duodenum appeared normal. There was no evidence of any fresh or old blood during the entire EGD. The scope was withdrawn. The patient tolerated the procedure well, and will be monitored in the OR in stable condition. RECOMMENDATIONS: 1. The patient will be on Protonix. Will make it twice a day for 3 months, and then wean down to Zantac 150 mg p.o. b.i.d. 2. Will start the patient on Carafate 1 gram every 6 hours for 6 weeks. Will start the patient on Iron-C b.i.d. for 90 days. 3. Will start the patient on Centrum Silver once daily for 90 days. 4. The patient will continue to avoid NSAIDs like Mobic. The patient will be started on a full liquid diet for 2 days and advance as tolerated. 5. The patient will follow up in the clinic in 4 weeks after discharge. At that time, will plan for repeat EGD with possible cautery of duodenal AVMs once he is off Plavix for 7 days as an outpatient. Further recommendations to follow pending the hospital course. The above plans were discussed with the patient and family. All questions were answered. Please call us with any further questions. cc: MD Larry Dobson MD MTDD
[2018-08-05] MEDS: VITAMIN D PO SCH (11:30)
[2018-08-05] MEDS: VITAMIN B-12 PO SCH (11:30)
[2018-08-05] MEDS: PROZAC PO SCH (11:30)
[2018-08-05] MEDS: TOPROL XL PO SCH (11:31)
[2018-08-05] MEDS: SYNTHROID PO SCH (11:31)
[2018-08-05] MEDS: CLARITIN PO SCH (11:32)
[2018-08-05] MEDS: PYRIDOXINE PO SCH (11:35)
[2018-08-05] MEDS: CARAFATE PO SCH ×2 (13:55→21:40)
[2018-08-05] MEDS: DESYREL PO SCH (21:40)
[2018-08-05] MEDS: ICAR-C PO SCH (21:40)
[2018-08-05] MEDS: PROTONIX IV SCH (21:40)
[2018-08-05] MEDS: SODIUM CHLORIDE 0.9% INJ SCH (21:40)
[2018-08-05] MEDS: RESTORIL PO SCH (21:43)
--- NOTE | 2018-08-05 22:06 | PROGRESS NOTE ---
DATE: 08/05/2018 SUBJECTIVE: The patient is very anxious. Waiting for EGD. Status post 1 unit of packed RBC. REVIEW OF SYSTEMS: No abdominal pain. No melena. PHYSICAL EXAMINATION: Vital signs: Temperature is 98 degrees, pulse is 70. Blood pressure is stable. General: Slightly pale. Chest: Clear. Heart: Sounds are regular. Abdomen: Belly is soft, nontender. No signs of peritonitis noted. INVESTIGATIONS: CBC: White cell count 7.4, hematocrit 29.8, platelets 215,000. SMA-7 is normal. Calcium 10.3. ASSESSMENT AND PLAN: 1. Upper gastrointestinal bleeding. Waiting for EGD by Dr. Benitez. Continue on IV Protonix. Status post 1 unit of packed RBCs. If the hematocrit goes below 27, ongoing GI bleeding, will transfuse. Based on the endoscopy, further recommendations will be followed. 2. Continue to hold all anticoagulants and NSAIDs. 3. Follow up on CBC, BMP in the morning. LEVEL OF DOCUMENTATION: 25 minutes. cc: Larry Nichols MD
[2018-08-06] MEDS: CARAFATE PO SCH ×4 (02:11→20:13)
[2018-08-06 07:06] LABS: BASO# 0.03 X1000 (0.0-0.2); BASO% 0.4 % (0.0-0.8); EOS# 0.24 X1000 (0.0-0.7); HEMATOCRIT 28.5 % (37.0-47.0); HEMOGLOBIN 9.3 g/dL (12.0-16.0); IMM GRAN# 0.05 X1000 (0.0-0.04); IMM GRAN% 0.6 % (0.0-0.5); LYMPH# 2.86 X1000 (1.2-3.4); LYMPH% 35.4 % (20.5-51.1); MCH 31.3 PG (27-31); MCHC 32.6 g/dL (33-37); MONO# 0.65 X1000 (0.11-0.59); MONO% 8.1 % (1.7-9.3); MPV 12.1 FL (7.4-10.4); NEUT# 4.24 X1000 (1.4-6.5); NEUT% 52.5 % (42.2-75.2); PLT 214 X1000 (130-400); RBC 2.97 XMIL (4.2-5.4); RDW 14.9 % (11.5-14.5); WBC 8.07 X1000 (4.8-10.8)
[2018-08-06 07:07] LABS: AGAP 12; BUN 13 mg/dL (8-22); CALCIUM 10.4 mg/dL (8.8-10.2); CHLORIDE 105 mmol/L (98-107); COSMO 277; CREATININE 0.9 mg/dL (0.5-0.9); ESTIMATED GFR > 60; GLUCOSE 160 mg/dL (70-104); POTASSIUM 4.6 mmol/L (3.5-5.1); SODIUM 137 mmol/L (136-145); TCO2 20 mmol/L (25-35)
[2018-08-06] MEDS: PROTONIX IV SCH ×2 (09:14→20:13)
[2018-08-06] MEDS: SODIUM CHLORIDE 0.9% INJ SCH ×2 (09:14→20:13)
[2018-08-06] MEDS: SYNTHROID PO SCH (09:14)
[2018-08-06] MEDS: CENTRUM SILVER PO SCH (09:15)
[2018-08-06] MEDS: CLARITIN PO SCH (09:15)
[2018-08-06] MEDS: TOPROL XL PO SCH (09:15)
[2018-08-06] MEDS: VITAMIN B-12 PO SCH (09:15)
[2018-08-06] MEDS: PYRIDOXINE PO SCH (09:15)
[2018-08-06] MEDS: PROZAC PO SCH (09:15)
[2018-08-06] MEDS: ICAR-C PO SCH ×2 (09:15→20:13)
[2018-08-06] MEDS: VITAMIN D PO SCH (09:16)
[2018-08-06] MEDS: DESYREL PO SCH (20:12)
[2018-08-06] MEDS: RESTORIL PO SCH (20:12)
--- NOTE | 2018-08-06 20:38 | PROVIDER PROGRESS NOTE ---
Progress Note SUBJECTIVE: No acute overnight events. Afebrile. No N/V, CP, SOB, abdominal pain, rectal bleeding or melena. OBJECTIVE: Last Vital Signs Temp 98.4 F 08/06/18 20:00 Pulse 69 08/06/18 20:00 Resp 14 08/06/18 20:00 BP 138/46 08/06/18 20:00 Pulse Ox 98 08/06/18 20:00 Height 5 ft 3 in Weight 169 lb GEN: awake, alert, NAD HEENT: anicteric, MMM NECK: supple, no jvd PULM: CTAB, no wheezing CV; RRR, no murmurs ABD; soft NT/ND, NABS, no rebound or guarding EXT: no cce NEURO: nonfocal LABS: 08/06/18 08/06/18 05:56 05:56 WBC 8.07 Hgb 9.3 L Plt Count 214 Sodium 137 Potassium 4.6 Chloride 105 Carbon Dioxide 20 L BUN 13 Creatinine 0.9 EGD 08/05 POSTOPERATIVE DIAGNOSES: 1. Esophagitis in distal esophagus. 2. Z-line was at 44 cm, evidence of bile in the stomach and biliary gastritis. 3. Normal fundus, cardia, incisura on retroflexion. 4. Duodenitis, moderate degree, noted in the duodenal bulb. 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 We did not cauterize as the patient was on Plavix until yesterday. There was evidence of a circumferential ulcer at the distal bulb with no active bleeding and no visible vessel. 5. Normal second portion of the duodenum. A/P: Ms. Lucila Almanza is a 78 year old woman with HTN, SSS s/p pacemaker, prior TIAs on plavix, OA, colonic polyps, diverticulosis, and recent knee replacement who presented with UGIB with melena secondary to duodenal ulcer. Other findings include esophagitis, duodenitis, and small duodenal bulb AVMs. #Bleeding PUD - continue PPI BID x 3 months then once daily while on blood thinners - avoid NSAIDs/aspirin - check H pylori serology, this can be done as outpatient, treat empirically if positive #Diverticulosis: stable; high fiber diet #Anemia: 2/2 GI blood loss; iron studies, b12, and folate normal #H/o SSS s/p pacemaker; aware #History of TIAs: holding plavix; resume on discharge #Chronic joint pain: avoid Mobic. tylenol as needed Patient ok to be discharged from GI perspective. Follow-up in 2-4 weeks. Will sign off. Please call with questions
--- NOTE | 2018-08-07 00:42 | PROGRESS NOTE ---
DATE: 08/06/2018 SUBJECTIVE: The patient is anxious to eat. EGD findings noted. No bleeding per rectum or melanotic stool. EXAM: Vital signs: Temperature is 98 degrees, pulse is 70, blood pressure 140/58. Slightly pale. Chest: Clear. Heart: Sounds are regular. Abdomen: Belly is soft, nontender. No signs of peritonitis. No obvious deficits noted. INVESTIGATIONS: CBC: White cell count 8, hematocrit 28.5, platelets 214,000. Sodium 137, potassium 4.6, chloride 105, BUN 13, creatinine 0.9. Calcium 10.4. Urinalysis is clear. ASSESSMENT AND PLAN: 1. Upper gastrointestinal bleeding due to esophagitis, arteriovenous malformation duodenal bulb, circumferential ulcer of the distal bowel. No active bleeding vessel noted, duodenal ulcer. Will continue hold on anticoagulants, aspirin and Mobic. 2. Continue on IV proton pump inhibitor, Carafate. 3. We will check the CBC in the morning. 4. Advance the GI soft diet. We will continue to monitor signs of any GI bleeding. Will discuss with the patient's family about the plan of care. Time of documentation 25 minutes. cc: Larry Nichols MD
[2018-08-07] MEDS: CARAFATE PO SCH ×4 (03:05→22:50)
[2018-08-07 07:10] LABS: BASO# 0.03 X1000 (0.0-0.2); BASO% 0.4 % (0.0-0.8); EOS# 0.29 X1000 (0.0-0.7); EOS% 3.4 % (0.0-10.0); HEMATOCRIT 29.9 % (37.0-47.0); HEMOGLOBIN 9.8 g/dL (12.0-16.0); IMM GRAN# 0.03 X1000 (0.0-0.04); IMM GRAN% 0.4 % (0.0-0.5); LYMPH# 2.58 X1000 (1.2-3.4); LYMPH% 30.5 % (20.5-51.1); MCH 31.5 PG (27-31); MCHC 32.8 g/dL (33-37); MCV 96.1 FL (81-99); MONO# 0.67 X1000 (0.11-0.59); MONO% 7.9 % (1.7-9.3); NEUT# 4.85 X1000 (1.4-6.5); NEUT% 57.4 % (42.2-75.2); PLT 214 X1000 (130-400); RBC 3.11 XMIL (4.2-5.4); RDW 14.7 % (11.5-14.5); WBC 8.45 X1000 (4.8-10.8)
[2018-08-07 07:50] LABS: CALCIUM 10.7 mg/dL (8.8-10.2); POTASSIUM 4.1 mmol/L (3.5-5.1)
[2018-08-07] MEDS: PROTONIX IV SCH ×2 (11:11→22:50)
[2018-08-07] MEDS: SODIUM CHLORIDE 0.9% INJ SCH ×2 (11:11→22:50)
[2018-08-07] MEDS: CLARITIN PO SCH (11:11)
[2018-08-07] MEDS: TOPROL XL PO SCH (11:12)
[2018-08-07] MEDS: VITAMIN B-12 PO SCH (11:12)
[2018-08-07] MEDS: PYRIDOXINE PO SCH (11:12)
[2018-08-07] MEDS: PROZAC PO SCH (11:12)
[2018-08-07] MEDS: SYNTHROID PO SCH (11:12)
[2018-08-07] MEDS: CENTRUM SILVER PO SCH (11:12)
[2018-08-07] MEDS: VITAMIN D PO SCH (11:12)
[2018-08-07] MEDS: ICAR-C PO SCH ×2 (11:12→22:50)
--- NOTE | 2018-08-07 13:59 | PROGRESS NOTE ---
DATE: 08/07/2018 SUBJECTIVE: The patient is doing better. No signs of active bleeding noted. Tolerating the diet very well. PHYSICAL EXAMINATION: Vital Signs: Temperature is 98.2 degrees, pulse is 70, blood pressure is stable. HEENT: Exam within normal limits. Neck: Supple. Chest: Clear. Heart: Sounds are regular. Abdomen: Belly is soft, nontender. ASSESSMENT AND PLAN: 1. Upper gastrointestinal bleeding due to duodenal ulcer. We will hold the aspirin and Mobic. We will start on Plavix in 2 weeks. 2. No signs of active GI bleeding noted. 3. GI soft diet. 4. Colace 100 p.o. b.i.d., out of the bed with physical therapy. Continue to watch symptoms and signs of GI bleeding. If she is stable in the next 24 hours, we will discharge in the morning. LEVEL OF DOCUMENTATION: 25 minutes. cc: Larry Nichols MD
--- NOTE | 2018-08-07 14:40 | CONSULTATION ---
DATE OF CONSULTATION: 08/07/2018 SUBJECTIVE: Lucila Almanza is a 78-year-old female who underwent a total knee arthroplasty back in June. She was admitted 2 days ago for a GI bleed and diverticulitis. I was asked to see her by her family for orthopedic consultation since I did her total knee recently. PHYSICAL EXAMINATION: General: Reveals a well-nourished female. She is alert and cooperative with exam. Extremities: Her knee wound is healed nicely. She has good range of motion. IMPRESSION: Left total knee arthroplasty. PLAN: We will have Physical Therapy work with her while she is in the hospital. She can be discharged home from my standpoint when cleared medically. cc: MD Larry Fraga MD
[2018-08-07] MEDS: COLACE LIQUID PO SCH ×2 (15:54→22:49)
[2018-08-07] MEDS: RESTORIL PO SCH (22:49)
[2018-08-07] MEDS: DESYREL PO SCH (22:50)
[2018-08-08] MEDS: CARAFATE PO SCH ×2 (02:33→10:30)
[2018-08-08] MEDS: CENTRUM SILVER PO SCH (10:30)
[2018-08-08] MEDS: PROZAC PO SCH (10:30)
[2018-08-08] MEDS: ICAR-C PO SCH (10:30)
[2018-08-08] MEDS: CLARITIN PO SCH (10:30)
[2018-08-08] MEDS: TOPROL XL PO SCH (10:31)
[2018-08-08] MEDS: SYNTHROID PO SCH (10:32)
[2018-08-08] MEDS: VITAMIN B-12 PO SCH (10:32)
[2018-08-08] MEDS: COLACE LIQUID PO SCH (10:32)
[2018-08-08] MEDS: PYRIDOXINE PO SCH (10:32)
[2018-08-08] MEDS: SODIUM CHLORIDE 0.9% INJ SCH (10:33)
[2018-08-08] MEDS: PROTONIX IV SCH (10:33)
[2018-08-08] MEDS: VITAMIN D PO SCH (10:34)
[2018-08-08 12:13] VITALS: BP 149/52
--- NOTE | 2018-08-09 08:55 | DISCHARGE SUMMARY ---
ADMISSION DATE: 08/04/2018 DISCHARGE DATE: 08/08/2018 DISCHARGING DIAGNOSIS: Upper gastrointestinal bleeding due to duodenal ulcer exacerbated by aspirin, Plavix, and Mobic. SECONDARY DIAGNOSES: 1. Allergic rhinitis. 2. Hypercalcemia due to hyperparathyroidism, stable, under the care of Dr. Brandon. 3. Hypertension. 4. Hypothyroidism. 5. Anxiety/depression. 6. Metabolic syndrome. 7. Osteoarthritis. 8. Type 2 diabetes. 9. Vitamin B12 deficiency. 10. Vitamin D deficiency. CONSULTS: 1. Dr. Storm, status post left knee replacement recently with a distal vein thrombosis, stable. 2. Dr. Benitez and Dr. Lamb. PROCEDURES: Status post 1 unit of packed RBC and EGD. EGD findings noted are esophagitis and AV malformation in duodenal bulb. There is evidence of circumferential ulcer in the distal bulb. No active bleeding vessel noted. BRIEF HISTORY: Please see the H and P that was done on 08/04/2018. In brief, she is a 78-year- old, white female. Recently had a left knee arthroplasty. Taking aspirin, Plavix, and Mobic. Came in with melenic stool and upper abdominal pain associated with a declining hemoglobin and hematocrit of 7 g and 23 respectively. HOSPITAL COURSE: The patient was given IV Protonix, Carafate, and 1 packed unit of blood transfusion. Subsequently, EGD showed the above findings. The patient was asked to continue her Carafate and Protonix. She wants the Colace in the pill form for constipation. Patient was advised to stop all the NSAIDs, aspirin, and Plavix for 2 weeks. There were no signs of active GI bleeding noted. The patient was sent home in a stable condition. LABORATORY DATA AT THE TIME OF DISCHARGE: CBC: White cell count 8.4, hematocrit 29.9, platelets 214,000. SMA-7: Sodium 139, potassium 4.1, chloride 105, BUN 15, creatinine 1.0, glucose 185, calcium 10.7. B12, folate, liver function tests were normal. DISCHARGE INSTRUCTIONS: 1. Discontinue aspirin, Plavix, and Mobic. 2. Prozac 20 mg daily, Desyrel 100 daily, metoprolol 50 daily, losartan 50 daily, Synthroid 125 mcg daily, Claritin 10 daily, temazepam 30 at bedtime, amlodipine 10 daily, B6 100 mg daily, B12 2500 mcg daily, vitamin D 3000 units daily, Tylenol as needed, Icar C Plus 1 tablet daily. We will give her Protonix 40 mg daily, Carafate 1 g p.o. q.6 for 10 days, Colace 100 mg daily. 3. Follow up in my office in 2 weeks. cc: MD Mariely Bruno MD Manish Arora, MD Michael Kelso, MD Richard S. Sharp, MD
== END 2018-08-08 13:24 | disposition home or self-care (01) | DRG 378 ==
LOC: DIRADM → 4N 15:37
PROVIDERS: ADMIT Internal Medicine; ATTEND Internal Medicine
CPT/HCPCS: 36430; 80048; 80053; 81001; 82607; 82728; 82746; 83540; 83550; 85025; 85610; 85730; 86850; 86900; 86901; 86920; 97116; 97163; A9270; C9113; P9016; S0164